=== PATIENT | male | born 1965 | race Caucasian/White ===

== ENCOUNTER 2017-11-29 01:38 | Emergency (ER) | payer SELFPAY ==
[~2017-11-29] VITALS: Ht 162.6 cm; Wt 65.9 kg
[2017-11-29] MEDS ORDERED: DEXAMETHASONE 4 MG TABLET PO ONE (02:30)
[2017-11-29 03:14] VITALS: BP 134/78
== END 2017-11-29 03:29 | disposition home or self-care (01) ==
LOC: EMS 01:40
DX: L25.2 Unspecified contact dermatitis due to dyes (principal); T50.995A Adverse effect of other drugs, medicaments and biological substances, initial encounter; Y92.89 Other specified places as the place of occurrence of the external cause
CPT/HCPCS: 99283; J8540

== ENCOUNTER 2017-12-09 03:38 | Emergency (ER) | payer MEDICAID ==
[~2017-12-09] VITALS: Ht 154.9 cm; Wt 65.9 kg
[2017-12-09 03:40] VITALS: BP 149/120
[2017-12-09] MEDS ORDERED: PredniSONE 20 MG TABLET PO ONE (04:00)
[2017-12-09] MEDS ORDERED: AMOX TR/POT CLAV 875 MG/125 MG TABLET PO ONE (04:00)
[2017-12-09] MEDS ORDERED: HYDROCODONE/ACETAMINOPHEN 5-325 MG TABLET PO ONE (04:15)
[2017-12-09] MEDS ORDERED: CLINDAMYCIN HCL 150 MG CAPSULE PO ONE (04:15)
[2017-12-09 04:21] LABS: BASOPHILS # (AUTO) 0.05 K/uL (0.00-0.20); BASOPHILS % (AUTO) 0.4 % (0.0-2.0); HEMATOCRIT 43.1 % (41-53); HEMOGLOBIN 14.4 g/dL (13.5-17.5); LYMPHOCYTES # (AUTO) 3.4 K/uL (1.0-4.8); LYMPHOCYTES % (AUTO) 26.7 % (22.0-44.0); MEAN CORPUSCULAR HEMOGLOBIN 31.2 pg (26.0-34.0); MEAN CORPUSCULAR HGB CONC 33.4 G/dL (31.0-37.0); MEAN CORPUSCULAR VOLUME 94 fL (80-100); MONOCYTES # (AUTO) 0.6 K/uL (0.1-1.0); MONOCYTES % (AUTO) 5.1 % (2.0-9.0); NEUTROPHILS # (AUTO) 7.9 K/uL (1.8-7.7); NEUTROPHILS % (AUTO) 62.3 % (40.0-70.0); PLATELET COUNT (AUTO) 254 K/uL (150-450); RED CELL DISTRIBUTION WIDTH 14.3 % (11.5-14.5)
== END 2017-12-09 04:27 | disposition home or self-care (01) ==
LOC: EMS 03:38
DX: L01.00 Impetigo, unspecified (principal); F17.210 Nicotine dependence, cigarettes, uncomplicated
CPT/HCPCS: 36415; 85025; 99284; J7512